=== PATIENT | female | born 1990 | race Caucasian/White ===

== ENCOUNTER 2017-07-21 01:59 | Emergency (ER) | payer OTHER ==
[~2017-07-21] VITALS: Ht 165.1 cm; Wt 54.4 kg
[2017-07-21] MEDS ORDERED: NORCO 5-325 TA1 EACH PO (03:27)
[2017-07-21] MEDS ORDERED: IBUPROFEN 800800 MG PO (03:27)
[2017-07-21] MEDS ORDERED: KEFLEX500 M1 PO (03:27)
[2017-07-21 03:30] VITALS: BP 131/72
== END 2017-07-21 03:30 | disposition home or self-care (01) ==
LOC: M.ERS 01:59
DX: S81.012A Laceration without foreign body, left knee, initial encounter (principal); F32.9 Major depressive disorder, single episode, unspecified; Z90.89 Acquired absence of other organs; Z88.8 Allergy status to other drugs, medicaments and biological substances; W25.XXXA Contact with sharp glass, initial encounter; Y93.89 Activity, other specified; Y92.89 Other specified places as the place of occurrence of the external cause; Y99.8 Other external cause status

== ENCOUNTER 2017-12-21 09:44 | Emergency (ER) | payer OTHER ==
[~2017-12-21] VITALS: Ht 162.6 cm; Wt 58.1 kg
[~2017-12-21 09:44] MED LIST: IBUPROFEN 800800 MG PO; KEFLEX500 M1 PO; NORCO 5-325 TA1 EACH PO
[2017-12-21] MEDS ORDERED: IBUPROFEN 600600 M1 PO (11:03)
[2017-12-21] MEDS ORDERED: ACETAMINOPHEN-1 EAC1 PO (11:03)
[2017-12-21 11:46] VITALS: BP 115/77
== END 2017-12-21 11:46 | disposition home or self-care (01) ==
LOC: M.ERS 09:44
DX: R07.81 Pleurodynia (principal); S00.83XA Contusion of other part of head, initial encounter; F32.9 Major depressive disorder, single episode, unspecified; Z90.89 Acquired absence of other organs; Y04.0XXA Assault by unarmed brawl or fight, initial encounter; Y93.89 Activity, other specified; Y92.89 Other specified places as the place of occurrence of the external cause; Y99.8 Other external cause status

== ENCOUNTER 2018-05-16 16:43 | Emergency (ER) | payer OTHER ==
[~2018-05-16] VITALS: Ht 162.6 cm; Wt 63.5 kg
[~2018-05-16 16:43] MED LIST changes: +ACETAMINOPHEN-1 EAC1 PO; +IBUPROFEN 600600 M1 PO
[2018-05-16 16:59] LABS: URINE BILIRUBIN NEGATIVE (Negative); URINE BLOOD 2+ (Negative); URINE CLARITY CLEAR; URINE COLOR YELLOW; URINE GLUCOSE-RANDOM NEGATIVE (Negative); URINE KETONES NEGATIVE (Negative); URINE LEUKOCYTES-REFLEX NEGATIVE (Negative); URINE NITRITE-REFLEX NEGATIVE (Negative); URINE PROTEIN NEGATIVE (Negative); URINE UROBILINOGEN 0.2 E.U./dl (0.2-1.0)
[2018-05-16 17:10] VITALS: BP 134/85
[2018-05-16 17:10] LABS: BACTERIA-REFLEX 1-9 Few /HPF (None Seen); CASTS None Seen /LPF (None Seen); CRYSTALS None Seen /LPF (None Seen); MUCUS None Seen strn/LPF (None Seen); SQUAMOUS 4-10 Moderate /LPF (0-3); URINE RBC 3-10 Few /HPF (0-2); URINE WBC-REFLEX 0-5 Rare /HPF (0-5)
== END 2018-05-16 17:10 | disposition home or self-care (01) ==
LOC: M.ERS 16:43
PROVIDERS: Family Medicine
DX: N72 Inflammatory disease of cervix uteri (principal); F32.9 Major depressive disorder, single episode, unspecified

== ENCOUNTER 2018-08-30 19:29 | Emergency (ER) | payer OTHER ==
[~2018-08-30] VITALS: Ht 162.6 cm; Wt 68.0 kg
[2018-08-30 20:04] VITALS: BP 118/77
== END 2018-08-30 20:00 | disposition left against medical advice (07) ==
LOC: M.ERS 19:29
DX: Z53.21 Procedure and treatment not carried out due to patient leaving prior to being seen by health care provider (principal)